=== PATIENT | female | born 1950 ===

== ENCOUNTER 2017-03-14 09:45 | Day surgery (SDC) | payer OTHER ==
[~2017-03-14 09:45] MED LIST: ALLOPURINOL1 GM PO; ATORVASTATIN CA10 MG PO; CALCIO PO; CARV PO; CENTRUM ADULTS1 EACH PO; OSTERA TABLET1 EACH PO; SPIRONOLACT PO; VALSARTAN40 MG PO; [UNRECOGNIZED DRUG - OTHER] PO
[2017-03-14] MEDS ORDERED: COLACE100 MG PO (13:50)
[2017-03-14] MEDS ORDERED: PERCOCET 5-3251 EACH PO (13:50)
== END 2017-03-14 18:30 | disposition home or self-care (01) ==
LOC: CIR.AMB 09:45
DX: D01.3 Carcinoma in situ of anus and anal canal (principal); K62.89 Other specified diseases of anus and rectum

== ENCOUNTER 2018-06-01 05:55 | Day surgery (SDC) | payer OTHER ==
[~2018-06-01 05:55] MED LIST changes: +COLACE100 MG PO; +COZAAR25 MG PO; +FERROUS SULFATE PO; +MAGNESIUM400 MG PO; +PERCOCET 5-3251 EACH PO; +VIT C PO; +[UNRECOGNIZED DRUG - OTHER] PO
[2018-06-01] MEDS ORDERED: COLACE100 MG PO (08:18)
[2018-06-01] MEDS ORDERED: PERCOCET 5-3251 EACH PO (08:18)
== END 2018-06-01 11:25 | disposition home or self-care (01) ==
LOC: CIR.AMB 05:55
DX: K62.82 Dysplasia of anus (principal)